=== PATIENT | female | born 1995 | race Hispanic/Latino ===

== ENCOUNTER 2020-10-24 16:52 | Outpatient (CLI) | payer OTHER ==
[~2020-10-24] VITALS: Ht 154.9 cm; Wt 76.4 kg
[2020-10-24 17:17] VITALS: BP 110/60
[2020-10-24] MEDS ORDERED: MULTTAB20 PO (17:32)
--- NOTE | 2020-10-24 17:39 | IPNPDOC ---
Obstetrical Progress Note Date of Service Oct 24, 2020 Subjective 25yo at 40+5wks presenting for c/o ctx's that have worsened intensity throughout the day now to every 6 minutes. She reports losing her mucus plug overnight and has had dark spotting VB since. Denies DFM or LOF. Assessment Heart Rate (FHR): 135 Variability: Moderate Accelerations: Positive Decelerations: None Heart Rate Tracing: Category I Tocometer Contractions: Yes Frequency: irregular Sterile Vaginal Examination Dilation: 2cm Effacement (%): 70% Station: -3 Cervical Consistency: Soft Cervical Position: Posterior Postion/Presentation: Cephalic presentation Assessment and Plan Status: Reassuring Additional Comments 25yo at 40+5wks presenting for c/o ctx's. Patient found to be in latent labor with SVE 2/70/-3 and tocometry with irregular ctx's q5-8 min apart. Patient admitted she has not been hydrating as well as she normally does today and was given PO hydration at bedside. Patient counseled on strict labor precautions. Patient is scheduled for NST tomorrow for late term gestation for close outpatient f/u. She is scheduled for IOL at 41+2wks on [id number]. Emotional support and reassurance offered. All questions answered. Med rec done. SAÚL QUINN DO Oct 24, 2020 17:39
== END 2020-10-24 17:52 | disposition home or self-care (01) ==
LOC: M LDO 16:52
DX: O62.3 Precipitate labor (principal); Z3A.40 40 weeks gestation of pregnancy
CPT/HCPCS: 59025; G0378; G0463

== ENCOUNTER 2020-10-24 22:11 | Outpatient (CLI) | payer OTHER ==
[~2020-10-24] VITALS: Ht 154.9 cm; Wt 76.7 kg
[~2020-10-24 22:11] MED LIST: MULTTAB20 PO
[2020-10-24 22:31] VITALS: BP 111/69
--- NOTE | 2020-10-25 01:45 | IPNPDOC ---
Obstetrical Progress Note Date of Service Oct 25, 2020 Subjective Patient presented for worsening painful ctx's q3-8min that have not improved with eating and hydration. She did get some relief in a hot shower. Denies LOF or DFM. Objective Vital Signs Date Time Temp Pulse Resp B/P (MAP) Pulse Ox O2 Delivery O2 Flow Rate FiO2 10/24/20 23:40 18 10/24/20 22:31 97.7 77 111/69 (83) Assessment Heart Rate (FHR): 140 Variability: Moderate Accelerations: Positive Decelerations: None Heart Rate Tracing: Category I Tocometer Contractions: Yes Frequency: irregular, every 3-7 min. Sterile Vaginal Examination Dilation: 2cm Effacement (%): 70% Station: -3 Cervical Consistency: Soft Cervical Position: Posterior Postion/Presentation: Cephalic presentation Assessment and Plan Status: Reassuring Additional Comments 25yo at 40w6d representing for c/o ctx's. Patient found to make no cervical change from previous presentation several hours prior. NST reactive with tocometry showing irregular ctx's. Patient offered admission for elective IOL but declined. Patient offered and accepted morphine rest and IV hydration. She received 1L of LR and 8mg morphine IM with decrease in pain from 8-9/10 to 5/10. Patient desired to go home. Discussed strict return precautions. Patient to f/u for COVID testing in AM at [facility] and then NST at OB clinic tomorrow morning for late term gestation. All questions answered. SAÚL QUINN DO Oct 25, 2020 01:45
== END 2020-10-25 01:34 | disposition home or self-care (01) ==
LOC: M LDO 22:11 → EEVIPCON 22:11 → M LDO 10-25 01:34
DX: O47.1 False labor at or after 37 completed weeks of gestation (principal); Z3A.40 40 weeks gestation of pregnancy
CPT/HCPCS: 59025; 96361; 96372; G0378; G0463; J2270

== ENCOUNTER 2020-10-25 20:53 | Inpatient (IN) | payer OTHER ==
[2020-10-25] VITALS (18 sets, daily range): BP systolic 86–125; BP diastolic 46–76
[~2020-10-25] VITALS: Ht 154.9 cm; Wt 77.2 kg
[2020-10-25] MEDS ORDERED: LR 1,000 ML IV SCH (21:32)
[2020-10-25 21:40] LABS: HEMATOCRIT 37.1 % (36.0-47.0); HEMOGLOBIN 12.3 g/dl (12.0-15.5); MEAN CORPUSCULAR HEMOGLOBIN 30.5 pg (27.0-33.0); MEAN CORPUSCULAR HGB CONC 33.2 g/dl (32.0-36.5); MEAN CORPUSCULAR VOLUME 92.1 fl (80.0-96.0); PLATELET COUNT, AUTOMATED 153 10^3/uL (150-450); RED BLOOD COUNT 4.03 10^6/uL (4.00-5.40); WHITE BLOOD COUNT 8.9 10^3/uL (4.0-10.0)
[2020-10-25] MEDS ORDERED: LACTATED RINGER'S 1000 ML IV ONE (21:45)
[2020-10-25] MEDS ORDERED: FENTANYL 2MCG/ML ROPIVACAINE 0.2% IN 0.9% NACL 100ML IVBAG As Ordered ONE (22:01)
--- NOTE | 2020-10-25 22:11 | HPEPDOC ---
Obstetrical History & Physical General Date of Admission Oct 25, 2020 at 20:53 Primary Care Physician: Zane Blanco MD History of Present Illness 24 YO LMP 01/13/2020 EDC 10/19/2020 BEEN TO TRIAGE 3 TIMES NOW ADMITTED WITH MODERATE CONTRACTIONS PAINFUL UNABLE TO TOLLERAT PAIN. 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 of 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 Past Medical History Medical History NON CONTRIBUTORY Surgical History: Denies/None Family History Significant Family History: No pertinent family hx Social History Marital Status: Family situation: Spouse/partner home Psychosocial History: No pertinent psych hx * Smoker: non-smoker Alcohol: Denies Drugs: denies Abuse Violence Screening Have you been hit/kicked/slapp: No Have you been sexually assault: No Imunizations Tdap status: current Influenza Status: current Allergies Coded Allergies: No Known Allergies (Unverified , 10/24/20) Medications Scheduled No122/Iron/Folic Acid ( Multi Tablet) 1 Each Tablet, 1 TAB PO DAILY Physical Examination Physical Examination GENERAL: Alert and oriented times three. BREAST: . ABDOMEN: Gravid and non-tender to touch. FETUS: Is vertex (VTX) by sterile vaginal examination (SVE), fetus is vertex (VTX) by [facility]. HEART RATE: Regular rate and rhythm. LUNGS: Clear to auscultation (CTA). EXTREMITIES: No edema. No clonus. Deep tendon reflexes (DTRs) NORMAL Vital Signs/I&O Vital Signs Date Time Temp Pulse Resp B/P (MAP) Pulse Ox O2 Delivery O2 Flow Rate FiO2 10/25/20 21:34 98.0 73 20 115/69 (84) Laboratory Data 24H LABS Laboratory Tests 2 10/25/20 20:59: Serology Scanned Report Hepatitis B Testing 10/25/20 21:30: Pertinent Laboratoy Data Blood Type: O+ RBC Antibody Screen: Negative HIV: Negative Hepatitis B: Negative Rapid Plasma Reagin: Nonreactive Rubella: Immune Varicella: Immune Chlamydia/Gonorrhea: Positive Group B Streptococcus: Negative Cystic Fibrosis: Negative Anatomy Ultrasound Placenta Location: Anterior Normal Anatomy: Yes Placenta Previa: No Steroid Therapy Steroid Therapy: No Vaginal Examination Dilation: 3 cm Effacement: 80% Station: -3 Cervical Consistency: Soft Cervical Position: Middle Presentation: Cephalic presentation Position: Vertex (occiput) Assessment Variability: Moderate Accelerations: Present Decelerations: None Tocometer Contractions: Yes Frequency: regular, every 2-5 min. Duration: less than 60 seconds Strength: palpated as moderate Assessment/Plan Assessment PATIENT is a 24 -year-old (G 2para (P0 at 41.6 weeks by LMP Presents to Labor and Delivery CONTRACTIONS PAINFUL Plan Admit and orient. 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 Diet: CLEAR FLUIDS Group B Streptococcus (GBS) [negative]. Labs and intravenous (IV) per unit protocol. Counseled on Pitocin AUGMENT AND OR AROM Lactated Ringers (LR): BOLUS 1000 mL, then at 125 mL/hr. Anticipate [normal spontaneous delivery ()]. C-S as appropriate. REVIEWED VAGINAL DELIVERY WITH RISK HEMORRHAGE INFECTION PERFORATION POSSIBLE TEARS LACERATIONS REQUIRE REPAIR AND OR EPISIOTOMY USE OF VACUUM OR FORCEPS MAY BE REQUIRED IF NEED FOR EXPEDITED DELIVERY OR MATERNAL EXHAUSTION . RISK ARE LACERATION HEMATOMA SUBDURAL HEMATOMA, RISK OF ADMISSION TO NICU . USE OF PITOCIN MAY CAUSE TACHYSYSTOLE RISK INCREASE CS DISCUSSION WILL TAKE PLACE RE REASON FOR CS MAY BE NEED FOR IMMEDIATE DELIVERY AND BETTER THAN CONTINUING LABOR, EXPRESSED UNDERSTANDING SAFE TO PROCEED Zane Blanco MD Oct 25, 2020 22:09
[2020-10-25] MEDS ORDERED: NALOXONE INJ 0.4MG/1ML VIAL (J2310 PER 1MG) IV PRN (22:19)
[2020-10-25] MEDS ORDERED: ONDANSETRON 4MG/2ML VIAL IV PRN (22:19)
[2020-10-25] MEDS ORDERED: REFRIGERATOR IV KEYS XX PRN (22:19)
[2020-10-25] MEDS ORDERED: EPIDURAL COMMENT XX SCH (22:19)
[2020-10-25] MEDS ORDERED: FENTANYL/ROPIVACAINE/NACL BAG 100 ML EPIDURAL SCH (22:19)
[2020-10-25] MEDS ORDERED: EPIDURAL/PCA KEYS XX PRN (22:19)
[2020-10-25] MEDS ORDERED: LACTATED RINGER'S 1000 ML IV PRN (22:19)
[2020-10-25] MEDS ORDERED: ePHEDrine SULFATE 25 MG/5 ML(5MG/ML) SYRINGE IV PRN (22:19)
[2020-10-25] MEDS ORDERED: diphenhydrAMINE 50MG/ML VIAL (J1200) IV PRN (22:19)
[2020-10-25] MEDS ORDERED: ePHEDrine SULFATE 25 MG/5 ML(5MG/ML) SYRINGE As Ordered ONE (23:02)
[2020-10-25] MEDS ORDERED: OXYTOCIN DRIP 30 UNITS in IV 1 EA IV SCH (23:30)
--- NOTE | 2020-10-25 23:32 | IPNPDOC ---
Text Note Date of Service The patient was seen on 10/25/20. NOTE 10/25/2020 1130 pm post epidural pressure dropped contractions spaced out pelvic exam 3 cm soft anterior arom clear fluid OT -3 station . reviewed Pitocin augmentation safe to proceed. VS,Fishbone, I+O VS, Fishbone, I+O Laboratory Tests 10/25/20 21:30 Vital Signs Date Time Temp Pulse Resp B/P (MAP) Pulse Ox O2 Delivery O2 Flow Rate FiO2 10/25/20 21:34 98.0 73 20 115/69 (84) Zane Blanco MD Oct 25, 2020 23:30
[2020-10-26] VITALS (8 sets, daily range): BP systolic 91–123; BP diastolic 52–88
[2020-10-26 04:23] LABS: CORD GAS ABE A -6.4; CORD GAS ABE V -4.8; CORD GAS HCO3 A 23.3 MEQ/L; CORD GAS O2 SAT A 22.7 %; CORD GAS O2 SAT V 60.8 %; CORD GAS PCO2 A 63.5 mmHg; CORD GAS PCO2 V 46.7 mmHg; CORD GAS PH A 7.182 UNITS; CORD GAS PH V 7.29 UNITS; CORD GAS PO2 A 16.1 mmHg; CORD GAS PO2 V 27.4 mmHg; CORD GAS SBC A 17.5 MEQ/L; CORD GAS SBC V 19.6 MEQ/L; CORD GAS TCO2 A 25.2 MEQ/L; CORD GAS TCO2 V 23.4 MEQ/L
[2020-10-26] MEDS ORDERED: METHYLERGONOVINE MALEATE 0.2 MG TAB PO PRN (04:30)
[2020-10-26] MEDS ORDERED: ACETAMINOPHEN 500 MG TAB PO PRN (04:30)
[2020-10-26] MEDS ORDERED: MEASLES,MUMPS,RUBELLA VACCINE INJ (MMR-II) (90707) SC SCH (04:30)
[2020-10-26] MEDS ORDERED: DOCUSATE SODIUM 100MG CAPSULE PO PRN (04:30)
[2020-10-26] MEDS ORDERED: IBUPROFEN 800 MG TAB PO PRN (04:30)
[2020-10-26] MEDS ORDERED: ANUSOL HC CREAM 30GM TOP PRN (04:30)
[2020-10-26] MEDS ORDERED: BENZOCAINE 20% HEMORRHOIDAL OINTMENT 28GM TUBE TOP PRN (04:30)
[2020-10-26] MEDS ORDERED: ACETAMINOPHEN TAB 650MG DOSE (2X325MG) PO PRN (04:30)
[2020-10-26] MEDS ORDERED: OXYTOCIN INJ 10 UNITS/ML VIAL (J2590) IV ONE (04:30)
[2020-10-26] MEDS ORDERED: OXYTOCIN DRIP 30 UNITS in IV 1 EA IV ONE (04:30)
[2020-10-26] MEDS ORDERED: RHOGAM 300 MCG (1500 IU) INJ (J2790) IM SCH (04:30)
[2020-10-26] MEDS ORDERED: IBUPROFEN 600MG TAB PO PRN (04:30)
[2020-10-26] MEDS ORDERED: MOM 30ML SUSPENSION UDC PO PRN (04:30)
--- NOTE | 2020-10-26 04:46 | DNPDOC ---
[facility] Delivery Note Delivery Note DATE OF DELIVERY: 10/26/2020 PREDELIVERY DIAGNOSIS: 41 weeks' gestation and labor. POST DELIVERY DIAGNOSIS: Delivered. PROCEDURE SPONTANEOUS VAGINAL DELIVERY MIXING PLANT DUMPER: Dr. ARMAS ANESTHESIA: EPIDURAL ESTIMATED BLOOD LOSS: 200 mL. FINDINGS: 8 pound 1 ounce MALE , Score 9/0 nuchal cord times 0 DELIVERY SUMMARY: Patient is a 24 year-old 2 now para 1 who was admitted to labor and delivery SPONTANEOUS VAGINAL DELIVERY LIVE MALE INFANT 8 LBS 1 OZ 3650 GRAMS 9/9 INTACT PERINEUM FIRST DEGREE TEAR REPAIRED TERMINAL MECONIUM . UTERUS CONTRACTED WELL DOWN WITH PITOCIN . BABY AND PATIENT TOLERATED PROCEDURE . Item Value Date Time White Blood Count 8.9 10^3/uL 10/25/202129 Red Blood Count 4.03 10^6/uL 10/25/202129 Hemoglobin 12.3 g/dl 10/25/202129 Hematocrit 37.1 % 10/25/202129 Mean Corpuscular Volume 92.1 fl 10/25/202129 Mean Corpuscular Hemoglobin 30.5 pg 10/25/202129 Mean Corpuscular Hemoglobin Concent 33.2 g/dl 10/25/202129 Red Cell Distribution Width 13.6 % 10/25/202129 Platelet Count 153 10^3/uL 10/25/202129 Nucleated Red Blood Cells % (auto) 0.0 % 10/25/202129 Cord Arterial Blood pH 7.182 UNITS 10/26/20415 Cord Arterial Blood PCO2 63.5 mmHg 10/26/206 Cord Arterial Blood PO2 16.1 mmHg 10/26/206 Cord Arterial Blood HCO3 23.3 MEQ/L 10/26/20415 Cord Arterial Blood Total CO2 25.2 MEQ/L 10/26/206 Cord Arterial Blood Base Excess -6.4 10/26/20415 Cord Arterial Base Excess (Standard 17.5 MEQ/L 10/26/206 Cord Arterial Bld Oxygen Saturation 22.7 % 10/26/20415 Cord Venous Blood pH 7.290 UNITS 10/26/206 Cord Venous Blood PCO2 46.7 mmHg 10/26/206 Cord Venous Blood PO2 27.4 mmHg 10/26/20415 Cord Venous Blood HCO3 22.0 MEQ/L 10/26/20415 Cord Venous Blood Total CO2 23.4 MEQ/L 10/26/20415 Cord Venous Base Excess (Actual) -4.8 10/26/20415 Cord Venous Base Excess (Standard) 19.6 MEQ/L 10/26/20415 Cord Venous Blood Oxygen Saturation 60.8 % 10/26/20415 Zane Armas MD Oct 26, 2020 04:36
[2020-10-26] MEDS: PRENATAL VITAMINS CHEWABLE TABLET PO SCH (08:24)
[2020-10-26] MEDS ORDERED: OXYTOCIN INJ 10 UNITS/ML VIAL (J2590) As Ordered ONE (08:39)
[2020-10-27 06:00] VITALS: BP 112/68
[2020-10-27 07:12] LABS: HEMATOCRIT 34.4 % (36.0-47.0); HEMOGLOBIN 11.3 g/dl (12.0-15.5); MEAN CORPUSCULAR HEMOGLOBIN 30.6 pg (27.0-33.0); MEAN CORPUSCULAR HGB CONC 32.8 g/dl (32.0-36.5); MEAN CORPUSCULAR VOLUME 93.2 fl (80.0-96.0); PLATELET COUNT, AUTOMATED 144 10^3/uL (150-450); RED BLOOD COUNT 3.69 10^6/uL (4.00-5.40); WHITE BLOOD COUNT 11.1 10^3/uL (4.0-10.0)
--- NOTE | 2020-10-27 10:01 | IPNPDOC ---
Progress Note Date of Service: Oct 27, 2020 Day#: 1 Progress Note SUBJECT: Lina is a 25-year-old [id number] status post uncomplicated spontaneous vaginal delivery of male 8 LBS 1 OZ 3650 GRAMS 9/9 at 41 weeks/0d, doing well day # 1. She has been ambulating, voiding spontaneously without issue and tolerating regular diet. Breast feeding without issue. Reports lochia is like a normal period. OBJECTIVE: VITAL SIGNS: Within normal limits, afebrile. Normal work of breathing Heart rate: Regular rate and rhythm Abdomen: Fundus firm at U-2. ASSESSMENT: Lina is a 25-year-old [id number] status post uncomplicated spontaneous vaginal delivery of male 8 LBS 1 OZ 3650 GRAMS 9/9 at 41 [id number], doing well day # 1. Vitals within normal limits, afebrile, hemodynamically stable with no evidence of infection. PLAN: 1. Discharge to home today. 2. Tylenol and Motrin for pain. 3. Encourage breast feeding and ambulation. 4. undecided for contraception for now- counseled on available options and on risks of close interval 5. Routine PP visit in 6 weeks in clinic. 6. Discussed return precautions at length. VS, I&O, 24H, Fishbone Vital Signs/I&O Vital Signs Date Time Temp Pulse Resp B/P (MAP) Pulse Ox O2 Delivery O2 Flow Rate FiO2 10/27/20 06:00 97.5 80 18 112/68 (83) 10/26/20 18:00 98 Room Air Laboratory Data 24H LABS Laboratory Tests 2 10/27/20 06:16: Nucleated Red Blood Cells % (auto) 0.0 CBC/BMP Laboratory Tests 10/27/20 06:16 OWEN CRAIN MD Oct 27, 2020 10:00
[2020-10-27] MEDS ORDERED: DOK1CAP7 PO (10:06)
[2020-10-27] MEDS ORDERED: ACET-683 PO (10:06)
[2020-10-27] MEDS ORDERED: IBUP80TA PO (10:06)
[2020-10-27] MEDS: PRENATAL VITAMINS CHEWABLE TABLET PO SCH (10:33)
--- NOTE | 2020-10-29 08:17 | IPN ---
PROGRESS NOTE DATE: 10/26/2020 This patient and her requested circumcision of her male infant. After discussing risks and benefits of circumcision, the medical and the nonmedical indications, penile block and aftercare; expressed understanding of penile block, aftercare, and bleeding. Signed the consent form. All questions were answered, 20 minute discussion. We await the clearance by the marketing and promotions manager.
== END 2020-10-27 10:50 | disposition home or self-care (01) | DRG 807 ==
LOC: M LDI 20:53 → M OBS 10-26 06:15
PROVIDERS: ADMIT Obstetrics & Gynecology; ATTEND Obstetrics & Gynecology
PROC: 10E0XZZ Delivery of Products of Conception, External Approach (ICD-10-PCS; principal; 2020-10-26)
PROC: 0HQ9XZZ Repair Perineum Skin, External Approach (ICD-10-PCS; 2020-10-26)
DX: O48.0 Post-term pregnancy (principal); Z37.0 Single live birth; Z3A.41 41 weeks gestation of pregnancy; O70.0 First degree perineal laceration during delivery

== ENCOUNTER → 2020-12-15 | Outpatient (CLI) | payer OTHER ==
[~2020-12-15] MED LIST changes: +ACET-683 PO; +DOK1CAP7 PO; +IBUP80TA PO
== END ==
LOC: M LABSMTC 12:46
PROVIDERS: ATTEND Family Medicine
DX: Z20.822 Contact with and (suspected) exposure to COVID-19 (principal)
CPT/HCPCS: C9803; U0003